=== PATIENT | female | born 1995 | race Caucasian/White ===

== ENCOUNTER 2017-03-04 19:17 | Emergency (ER) | payer OTHER ==
[2017-03-04 19:24] VITALS: BP 139/79
--- NOTE | 2017-03-04 20:31 | RAD ---
Indication: Chest pain, fall. 3 views of the left shoulder demonstrates no fracture. 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 No other bone or joint abnormality is identified. IMPRESSION: No fracture of the left shoulder is noted.
--- NOTE | 2017-03-04 20:31 | RAD ---
Indication: Rib pain and injury. 3 views of left ribs are reviewed. Dual-energy PA views of the chest were also obtained. The left ribs demonstrates no fracture. No mediastinal shift is noted. Heart is of normal size and configuration. Lung oh appear clear. IMPRESSION: No fracture of the RIBS is identified. No pneumothorax is noted.
--- NOTE | 2017-03-04 20:33 | UC ---
Respiratory Complaint HPI - HPI Summary HPI Summary: Pt presents with left shoulder pain and left chest wall pain s/p fall earlier today. She tells me that she was at track practice and got tripped up in the feet of the person next to her. She fell onto her left side and another runner fell on top of her. She had immediate left shoulder and left anterior chest wall pain, but was able to finish practice. Towards the end of practice she felt like she was getting SOB and that there was something tight in her left upper chest. She went to [facility] and they referred her to our Urgent Care. Currently she is sitting breathing comfortably. She is complaining of left shoulder pain and left anterior chest wall pain. No SOB, chest pressure, headache, dizziness, numbness, tingling, or decreased ROM. - History of Current Complaint Chief Complaint: UCTrauma Stated Complaint: SOB,SHOULDER INJURY Time Seen by Provider: 03/04/17 19:26 Hx Obtained From: Patient Hx Last Menstrual Period: 02/11/17 Onset/Duration: Sudden Onset Timing: Constant Severity Initially: Mild Severity Currently: Mild Pain Intensity: 2 Pain Scale Used: 0-10 Numeric - Allergies/Home Medications Allergies/Adverse Reactions: Allergies Allergy/AdvReac Type Severity Reaction Status Date / Time No Known Allergies Allergy Verified 03/04/17 19:19 Home Medications: Home Medications NK [No Home Medications Reported] 03/04/17 [History Confirmed 03/04/17] PMH/Surg Hx/FS Hx/Imm Hx Previously Healthy: Yes - Surgical History Surgical History: Yes Surgery Procedure, Year, and Place: Rt ACL REPAIR -2011 - Social History Occupation: Student Lives: Dormitory/Roommates Alcohol Use: None Substance Use Type: None Smoking Status (MU): Never Smoked Tobacco Review of Systems Constitutional: Negative Skin: Negative Respiratory: Shortness Of Breath Cardiovascular: Negative Gastrointestinal: Negative Neurovascular: Negative Musculoskeletal: Other: - Left shoulder pain. Left chest wall pain Neurological: Negative Psychological: Negative All Other Systems Reviewed And Are Negative: Yes Physical Exam Triage Information Reviewed: Yes Appearance: Well-Appearing, No Pain Distress, Well-Nourished Vital Signs: Initial Vital Signs Temp 98 F 03/04/17 19:21 Pulse 66 03/04/17 19:21 Resp 18 03/04/17 19:21 BP 139/79 03/04/17 19:21 Pulse Ox 100 03/04/17 19:21 Vital Signs Reviewed: Yes Neck: Positive: Supple, Nontender, No Lymphadenopathy, Other: - Trachea midline. FROM. NTTP. Respiratory: Positive: Lungs clear, Normal breath sounds, No respiratory distress, No accessory muscle use Cardiovascular: Positive: RRR, No Murmur, Pulses Normal Musculoskeletal: Positive: Strength Intact - Left shoulder, ROM Intact - Left shoulder, No Edema, Other: - TTP overlying lateral left shoulder. TTP overlying left chest wall above left breast. Worse with adduction of left shoulder. No edema or obvious bony deformities. Negative apleys, apprehension, empty can, dozier-andrea, near, freeman, and yergason tests. Neurological: Positive: Alert, Muscle Tone Normal, Other: - Sensations intact C4 -T1 left UEs. CN II-XII grossly intact. Psychological: Positive: Age Appropriate Behavior Skin: Positive: Other - No erythema, ecchymosis, or edema on left shoulder or left chest wall.. Negative: rashes, significant lesion(s) UC Diagnostic Evaluation - Laboratory O2 Sat by Pulse Oximetry: 100 Respiratory Course/Dx - Course Course Of Treatment: IMPRESSION: No fracture of the RIBS is identified. No pneumothorax is noted. No fracture of the left shoulder is noted. Pt is resting comfortably. Suspect soft tissue contusion of left shoulder and left ribs. Ibuprofen prn and activities as tolerated. - Differential Dx/Diagnosis Provider Diagnoses: Left shoulder contusion. Left ribs contusion Discharge - Discharge Plan Condition: Stable Disposition: HOME Patient Education Materials: Rib Contusion (ED) Referrals: [facility] - Mike GIBSON [Primary Care Provider] - Additional Instructions: If you develop a fever, shortness of breath, chest pain, new or worsening symptoms - please call your PCP or go to the ED. 1) May take ibuprofen 600mg every 6-8hr as needed for pain. Ice to the area for the next 24-48 hours and then heat would likely be more beneficial. 2) Stretches three or four times a day as demonstrated in the office today.
== END 2017-03-04 21:15 | disposition home or self-care (01) ==
LOC: UCEAST 19:17
DX: S40.012A Contusion of left shoulder, initial encounter (principal); S20.212A Contusion of left front wall of thorax, initial encounter; W01.0XXA Fall on same level from slipping, tripping and stumbling without subsequent striking against object, initial encounter; Y93.02 Activity, running; Y92.39 Other specified sports and athletic area as the place of occurrence of the external cause; R06.02 Shortness of breath
CPT/HCPCS: 71111; 99211; G0463